=== PATIENT | female | born 1940 | race Caucasian/White ===

== ENCOUNTER 2024-10-16 11:49 | Emergency (ER) | payer OTHER ==
[~2024-10-16] VITALS: Ht 172.7 cm; Wt 88.0 kg
--- NOTE | 2024-10-16 12:03 | ERN ---
General Chief Complaint: Abdominal Pain Stated Complaint: SIDE PAIN Time Seen by MD: 11:52 Source: patient History of Present Illness Initial Comments In his is a an 84-year-old female coming in to be evaluated for pain. Patient states that she was diagnosed with colon cancer was just seen by her colorectal surgeon office. She states that as soon as she lives he started having more discomfort and was told to come to the ER. Patient states she does not want any labs or imaging studies and she is merely here for pain relief. Allergies: Coded Allergies: Sulfa (Sulfonamide Antibiotics) (Unverified Allergy, Unknown, 10/16/24) ROS Dictation CONSTITUTIONAL: No chills, no fever, no weakness, no diaphoresis, no malaise. HEAD/FACE: No signs of trauma. EENT: No eye pain, no blurred vision, no tearing, no double vision, no ear pain, no ear discharge, no nose pain, no nasal congestion, no throat pain, no throat swelling, no mouth pain. RESPIRATORY: No cough, no orthopnea, no SOB, no stridor, no wheezing. CARDIOVASCULAR: No chest pain, no edema, no palpitations, no syncope. GASTROINTESTINAL/ABDOMINAL: No abdominal pain, no constipation, no diarrhea, no nausea, no vomiting. GENITOURINARY: No abnormal discharge, no dysuria, no frequent urination, no hematuria. No complaints of pain in the genitals. MUSCULOSKELETAL: No back pain, no gout, no joint pain, no joint swelling, no muscle pain, no muscle stiffness, no neck pain. INTEGUMENTARY: No change in color, no change in hair/nails, no dryness, no lesion, no lumps, no rash. NEUROLOGICAL/PSYCH: No anxiety, not depressed, no emotional problem, no headache, no numbness, no pre-existing deficit, no history of seizures, no tremors, no weakness. HEMATOLOGIC/LYMPHATIC: Not anemic, no history of blood clots, no apparent bleeding, no bruising, glands not swollen. All Systems Negative, Except as Noted. Physical Exam Physical Exam Dictation VITAL SIGNS: Reviewed. GENERAL APPEARANCE: Alert, oriented x3, no acute distress, obese. HEAD AND FACE: Non-traumatic. EYES: PERRL, pink conjunctivas, eyelid no trauma, anterior chamber clear. EARS: Pinnas intact and no signs of trauma or erythema. Ear canals clear and no discharge. TMs no erythema. NOSE: No discharge, no bleeding. OROPHARYNX: Mouth normal, teeth no caries, tongue pink. Pharynx clear, no minh thema. Tonsils no exudates, no abscesses noted. Mucous membrane moist. NECK: Supple, non-tender, no thyromegaly, no masses, no JVD, no bruits. BREAST: Deferred. CHEST: No tenderness, no crepitus, no paradoxical movement, no retractions. LUNGS: Clear, well-ventilated, symmetric, no rales, no wheezing, no rhonchi, no stridor, good breath sounds bilaterally. HEART: Regular rate, regular rhythm, no murmur, no gallops. VASCULAR: No peripheral edema. ABDOMEN: Soft, positive bowel sounds, nondistended, no guarding, nontender, no rebound, no masses no hepatomegaly, no splenomegaly, no Fuller's sign, no hernias. RECTAL: Deferred. GENITAL: Deferred. NEUROLOGICAL: Normal speech, gross motor function intact, gross sensory function intact. MUSCULOSKELETAL: Neck nontender, full range of motion, back nontender, full range of motion. EXTREMITIES: Nontender, full range of motion. SKIN: Color pink, dry, no turgor, no rash, no lacerations, no abrasions, no contusions. LYMPHATICS: Deferred. Results Laboratory and Microbiology Labs Reviewed?: Yes MDM MDM: Differential diagnosis: Colon cancer, drug-seeking, 84-year-old female coming in to be evaluated for pain management. Patient states that she has been diagnosed with colon cancer in his here for pain control. She states that she has just left her colorectal surgeon but forgot to ask him for pain meds. Patient received 4 mg of morphine states he does not want any labs once again I did advise her she needed to follow up with her PCP for long-term management of pain. Also told her that pain would be better controlled with surgical removal of mass in the colon. ED Course Orders Procedure Category Date Status Time Morphine 4mg Syg PHA 10/16/24 Complete (Morphine 4mg Syg) 12:30 Current Medications Medications (Trade) Dose Ordered Sig/Reji Route PRN Reason Start Time Stop Time Status Last Admin Dose Admin Morphine Sulfate (morPHINE 4MG SYG) 4 mg ONCE ONCE IM 10/16/24 12:30 10/16/24 12:31 DC 10/16/24 12:14 Vital Signs Date Time Temp Pulse Resp B/P (MAP) Pulse Ox O2 Delivery O2 Flow Rate FiO2 10/16/24 12:00 97.5 89 16 137/68 97 Room Air DX & DISP Disposition: Discharge Departure Impression: Primary Impression: Drug-seeking behavior Additional Impression: History of colon cancer Condition: Stable Additional Instructions: FOLLOW-UP WITH PRIMARY CARE PROVIDER IN 1 TO 2 DAYS. TAKE MEDICATIONS D IRECTED HERE IN THE EMERGENCY ROOM. OKAY TO CONTINUE HOME MEDICATIONS UNLESS OTHERWISE DISCUSSED DURING YOUR VISIT IN THE EMERGENCY ROOM TODAY. RETURN TO YOUR NEAREST EMERGENCY ROOM IF SYMPTOMS WORSEN OR IF THERE IS NO IMPROVEMENT. CALL 911 IF YOU NEED IMMEDIATE ASSISTANCE. TAKE TYLENOL [id number] NEEDED AND IF NO CONTRAINDICATIONS ARE PRESENT. INCREASE ORAL HYDRATION. A WOUND CULTURE OR URINE CULTURE WAS ORDERED HERE IN THE EMERGENCY ROOM DEPARTMENT PLEASE FOLLOW-UP WITH PRIMARY CARE PROVIDER AND ADVISE THEM TO GET REPEAT PORTS FROM OUR FACILITY. IF YOU HAD ANY GEOVANNA WRAP/SPLINTS THAT WERE APPLIED HERE, PLEASE DO NOT REMOVE THEM UNTIL YOU SEE YOUR PRIMARY CARE OR SPECIALTY. Referrals: Referrals: JOAN KERNS MD, LUIS A MD Time of Disposition: 12:41 DARLENE YOON MD Oct 16, 2024 12:03
--- NOTE | 2024-10-16 12:06 | NUR ---
PT REFUSED LABS AND IMAGING, ER MD DR. YOON MADE AWARE.
[2024-10-16] MEDS: morPHINE 4 MG SYG IM ONE (12:14)
[2024-10-16 13:04] VITALS: BP 126/57; PULSE 76; RESP 18; TEMP 98.8; O2SAT 96
== END 2024-10-16 13:05 | disposition home or self-care (01) ==
LOC: EDH 11:49
DX: C18.9 Malignant neoplasm of colon, unspecified (principal); Z76.5 Malingerer [conscious simulation]; Z88.2 Allergy status to sulfonamides
CPT/HCPCS: 99283; 96372; J2270

== ENCOUNTER 2024-10-26 00:21 | Inpatient (IN) | payer OTHER ==
[2024-10-26] VITALS (11 sets, daily range): BP systolic 96–159; BP diastolic 54–75; PULSE 20–84; RESP 17–18; TEMP 98–99; O2SAT 96–97
[~2024-10-26] VITALS: Ht 172.7 cm; Wt 93.4 kg
[2024-10-26] MEDS ORDERED: acetaMINOPHEN 325 MG TAB PO PRN ×2 (03:00)
[2024-10-26] MEDS ORDERED: ondanSETRON 4MG INJ IV PRN (03:00)
--- NOTE | 2024-10-26 03:44 | HP ---
[facility] HISTORY AND PHYSICAL Date of Service: Oct 26, 2024 Time of Service: 02:50 PCP:Radha Parr HISTORY OF PRESENT ILLNESS: This is an 84 year old female with past medical history of hypertension,hyperlipidemia ,colon , rectal cancer rectal with recent robotic lysis of adhesion and colostomy creation performed on 10/[address]Haisar Sara Estrada who was transferred from [facility] ER for complaints of severe abdominal pain.Patient reports she was recently discharged from this facility on Tuesday and she has been having abdominal pain and was sent home without pain medication so while at home she was having persistent abdominal pain located around right lower quadrant.Patient reports the following day on she developed a fever of 101 and a home health nurse visited her and instructed her to go to ER,thus prompted this admission.Patient reports she has an up coming chemotherapy and a surgery . Seen and examined patient in room 428 awake,alert,coherent and appears comfortable.Patient denies nausea,vomiting,chest pain,palpitation ,cough and shortness of breath.Upon arrival from [facility] V/S T98.2,HR 63,RR17 BP 156/61 and Sat 97% RA. There is a CT scan of abdomen and pelvis without contrast done while in [facility] result revealed diverting colostomy is noted in the left lower quadrant to evidence of bowel obstruction. There is a small bubble of free air intraperitoneal which is presumably postoperative in nature. There is extensive subcutaneous emphysema there is thickening of the rectal wall which may represent a neoplasm. There is a small hiatal hernia the common bile duct is dilated at 2 cm.Will admit patient for further medical management. REVIEW OF SYSTEMS CONSTITUTIONAL: Complain of fever Denies chills, or night sweats. No unintentional weight loss reported. NEUROLOGICAL: Denies headache, amaurosis fugax, motor weakness, sensory deficit, vertigo/spinning sensation, gait abnormalities, or tremors. ENT: No hearing loss, otalgia, otorrhea, rhinitis, rhinorrhea, hoarseness, or sore throat. CARDIOVASCULAR: Denies any exertional angina, dyspnea on exertion, orthopnea, paroxysmal nocturnal dyspnea, palpitations, life-threatening arrhythmias, claudication. PULMONARY: Denies any shortness of breath, cough, phlegm/sputum, hemoptysis, pleuritic chest pain. SLEEP: Denies morning headaches, daytime somnolence or napping. Denies difficulty falling asleep, staying asleep, waking from sleep. Denies knowledge of snoring. GASTROINTESTINAL: Complained of right lower quadrant abdominal pain Denies any type of dysphagia to either liquids or solids. Denies nausea, vomiting, pyrosis, early satiety, diarrhea, constipation, or changes in stool consistency or caliber. Denies coffee-ground emesis, hematemesis, hematochezia, or melanotic stools. GENITOURINARY: Denies frequency, urgency, nocturia, hematuria or incontinence (Storage/Irritative symptoms.) Low urinary stream, straining to void, urinary intermittency or hesitancy, splitting of the voiding stream, terminal dribbling. ENDOCRINOLOGIC: Denies polyuria, polydipsia, polyphagia or heat/cold intolerances. HEMATOLOGIC: Denies thrombophilia/previous clots, or coagulopathy/bleeding disorders. ONCOLOGIC: Denies personal history of malignancy. DERMATOLOGIC: Denies rashes or pruritus. PSYCHIATRIC: Denies any suicidal or homicidal ideation. Denies hallucinations. PAST MEDICAL HISTORY: [Information obtained from patient :COLON and RECTAL Cancer , HYPERTENSION AND HYPERLIPIDEMIA ] PAST SURGICAL HISTORY: [ROBOTIC LYSIS OF ADDITION AND ROBOTIC LOOP COLOSTOMY CREATION 10/22/2024 ] PAST SOCIAL HISTORY: [ Patient lives alone .Patient denies alcohol,cigarette and recreational drug use ] FAMILY HISTORY: [ Noncontributory ] Coded Allergies: Sulfa (Sulfonamide Antibiotics) (Unverified Allergy, Unknown, 10/16/24) PHYSICAL EXAM GENERAL APPEARANCE: The patient is awake, alert, and oriented, in no acute cardiopulmonary distress. NEUROLOGICAL: Cranial nerves II-XII grossly intact. Motor is 5/5 in bilateral upper and lower extremities proximal to distal. No sensory deficits. HEENT: Face is symmetric. Pupils are equal and reactive. Extraocular movements are intact. NECK: Supple. No JVD. No thyromegaly. No submental, submandibular, pre- /postauricular, occipital or supraclavicular lymphadenopathy. CHEST: Normal chest expansion. No Telemetry. LUNGS: Absence of any rales, rhonchi or any wheezing. CARDIOVASCULAR: Regular. S1 and S2 normal. No appreciable rubs, murmurs or gallops. ABDOMEN: Diffuse abdominal tenderness on palpation. Positive colostomy Soft and nondistended. There is no rebound, voluntary guarding, or rigidity. : Deferred. No Martinez. EXTREMITIES: Non-edematous and not cyanotic. No clubbing. Good capillary refill. SKIN: No skin breakdown. LABS: DIAGNOSTICS / RADIOLOGY: [ ] ASSESSMENT: Intractable abdominal pain POA Postoperative complication POA Postoperative fever POA Rectal cancer POA Recent post colostomy placement POA Hypertension POA PLAN: We will admit patient in medical telemetry We will keep patient nothing by mouth We will start NS @ 100 ml / hr and re evaluate We will start Levaquin 750 mg IV daily We will start on Famotidine 20 mg IV bid for GI prophylaxis We will replace electrolytes as needed per protocol We will add prn medication for fever,pain,cough , nausea and vomiting We will reconcile home meds once medlist available We will seek general surgery consultation We will obtain urinalysis and blood culture We will request labs in am Further orders to follow depending on above results Case discussed with attending physician and came up with above treatment and plan of care. ADVANCED CARE PLANNING 1. Which of the following were discussed? Hospice Care - No Therapeutic options - Yes Advance Directives - No Other discussions - 2. Discussed with who? Patient 3. Voluntary nature of this service was explained to the patient? Yes 4. Amount of time spent - _20 5. Reviewed by Physician? (if this service was performed by NPP) Yes Patient seen and examined by me. Agree with note by ADHESIVE BONDING MACHINE OPERATOR SEE ADDITIONAL ORDERS PER CHART DISCUSSED WITH NURSING STAFF CONNIE LAL Oct 26, 2024 03:44
[2024-10-26 04:03] LABS: BASOPHILS # (AUTO) 0.01 K/uL (0.00-0.20); BASOPHILS % (AUTO) 0.1 % (0.0-5.0); HEMATOCRIT 39.8 % (36-48); IMMATURE GRANULOCYTE ABSOLUTE 0.05 K/uL (0-1); LYMPHOCYTES # (AUTO) 1.6 K/uL (1.0-4.8); LYMPHOCYTES % (AUTO) 16.6 % (21.0-51.0); MEAN CORPUSCULAR HGB CONC 33.4 g/dL (32.0-36.0); MEAN CORPUSCULAR VOLUME 89.6 fL (79-99); MONOCYTES # (AUTO) 1.1 K/uL (0.1-1.0); MONOCYTES % (AUTO) 10.9 % (3.0-13.0); NEUTROPHILS % (AUTO) 70.9 % (40.0-77.0); PLATELET COUNT (AUTO) 248 K/uL (130-400); RED BLOOD CELL COUNT(AUTO) 4.44 MIL/uL (4.00-5.50); RED CELL DISTRIBUTION WIDTH 14.7 % (11.0-15.5); WHITE BLOOD COUNT (AUTO) 9.8 K/uL (4.8-10.8)
[2024-10-26 04:11] LABS: INR 1.03 (0.85-1.15); PROTHROMBIN TIME 10.9 SEC (9.6-11.6)
[2024-10-26 04:13] LABS: PARTIAL THROMBOPLASTIN TIME 24.3 SEC (26.3-35.5)
[2024-10-26 04:16] LABS: BILIRUBIN,TOTAL 0.6 mg/dL (0.2-1.0); CREATININE 0.8 mg/dL (0.5-1.0); MAGNESIUM 1.7 mg/dL (1.80-2.40); TOTAL PROTEIN, SERUM 5.8 g/dL (6.0-8.3)
[2024-10-26 04:25] LABS: POTASSIUM 2.7 mmol/L (3.5-5.1)
[2024-10-26] MEDS: levoFLOXacin 750 MG/D5W 150ML BAG IV SCH (04:46)
[2024-10-26] MEDS: 0.9%NACL 1000ML 1,000 ML IV SCH (04:47)
[2024-10-26] MEDS: ketOROlac 15MG/ML VIAL (15MG/ML) IV PRN (04:48)
[2024-10-26 05:15] LABS: ERYTHROCYTE SEDIMENTATION RATE 5 MM/HR (0-30)
[2024-10-26] MEDS: PoTASSium chloRIDE 20MEQ/100ML 100 ML IV PRN (06:34)
--- NOTE | 2024-10-26 09:25 | CONS ---
COLORECTAL CONSULTATION NOTE Date of Consultation: Oct 26, 2024 Time of Consultation: 09:25 History of Present Illness: This is an 84yo female with past medical history of obstructing rectal mass. She underwent loop colostomy 10/22/24. She was sent home in stable condition; however, presented back due to fevers and abdominal pain. Imaging at [facility] without obstruction. Abdomen is soft, nondistended. She has not had any output in ostomy. No nausea or vomiting. Review of Systems: CONSTITUTIONAL: No malaise or change in sensation of wellbeing. ENMT: No rhinorrhea, otorrhea, sinus pain, ear ache. CARDIOVASCULAR: No angina, palpitations, orthopnea or paroxysmal dyspnea. RESPIRATORY: No SOB. GASTROINTESTINAL: No abdominal pain, nausea, vomiting, diarrhea, hematemesis, melena or change in the patient's habitual bowel movements consistency/number. GENITOURINARY: No dysuria, hematuria or change in bladder continence. MUSCULOSKELETAL: No new muscle pain or decrease in muscular strength. No new joint swelling, redness or tenderness. SKIN: No new rash. Past Medical History: [ ] Past Surgical History: [ ] Past Social History: [ ] Family History: [ ] Coded Allergies: Sulfa (Sulfonamide Antibiotics) (Unverified Allergy, Unknown, 10/16/24) Physical Exam: GEN: Awake, alert, oriented in person, time and place, and in no acute distress. HEENT: No sinus tenderness. Tympanic membranes were not examined. No rhinorrhea. Oral pharyngeal mucosa is pink, moist and within normal limits. Neck is supple with no cervical lymphadenopathy, thyromegaly or JVD. CHEST: Inspection, palpation and percussion of the chest were unremarkable. Lung auscultation revealed normal breath sounds bilaterally. CARDIAC: PMI is within normal limits. Heart sounds are regular. Normal S1, S2. No gallop or murmur. ABD: Soft, non-tender and not distended. No peritoneal signs on palpation. No organomegaly. Normal bowel sounds. EXT: No cyanosis or clubbing. No edema. SKIN: Intact. No rashes. JOINTS: No evidence of synovitis or acute arthritis. NEURO: Alert and oriented to name, place and person. Cranial nerve examination is unremarkable. No focal motor deficits. Normal speech. Gait is normal. Strength is normal. Vital Sign (Last 24 Hours) 10/26/24 10/26/24 05:42 08:00 Temp 98.1 Pulse 72 Resp 18 B/P (MAP) 126/58 Pulse Ox 96 O2 Delivery Room Air O2 Flow Rate 0 FiO2 21 Intake & Output (last 24hrs) 10/25/24 10/25/24 10/26/24 15:00 23:00 07:00 Output Total 220 ml Balance -220 ml Laboratory: [ ] Laboratory: Test 10/26/24 03:46 Range/Units White Blood Count 9.8 4.8-10.8 K/uL Red Blood Count 4.44 4.00-5.50 MIL/uL Hemoglobin 13.3 12.0-16.0 g/dL Hematocrit 39.8 36-48 % Mean Corpuscular Volume 89.6 79-99 fL Mean Corpuscular Hemoglobin 30.0 27.0-33.0 pg Mean Corpuscular Hemoglobin Concent 33.4 32.0-36.0 g/dL Red Cell Distribution Width 14.7 11.0-15.5 % Platelet Count 248 130-400 K/uL Mean Platelet Volume 10.8 H 7.5-10.5 fL Immature Granulocyte % (Auto) 0.5 0-1 % Neutrophils (%) (Auto) 70.9 40.0-77.0 % Lymphocytes (%) (Auto) 16.6 L 21.0-51.0 % Monocytes (%) (Auto) 10.9 3.0-13.0 % Eosinophils (%) (Auto) 1.0 0.0-8.0 % Basophils (%) (Auto) 0.1 0.0-5.0 % Neutrophils # (Auto) 7.0 1.8-7.7 K/uL Lymphocytes # (Auto) 1.6 1.0-4.8 K/uL Monocytes # (Auto) 1.1 H 0.1-1.0 K/uL Eosinophils # (Auto) 0.10 0.00-0.70 K/uL Basophils # (Auto) 0.01 0.00-0.20 K/uL Absolute Immature Granulocyte (auto 0.05 0-1 K/uL Nucleated Red Blood Cells 0.0 0.0-0.19 % Erythrocyte Sedimentation Rate 5 0-30 MM/HR Prothrombin Time 10.9 9.6-11.6 SEC Prothromb Time International Ratio 1.03 0.85-1.15 Activated Partial Thromboplast Time 24.3 L 26.3-35.5 SEC Sodium Level 142 136-145 mmol/L Potassium Level 2.7 *L 3.5-5.1 mmol/L Chloride Level 105 101-111 mmol/L Carbon Dioxide Level 30 21-32 mmol/L Blood Urea Nitrogen 14 7-18 mg/dL Creatinine 0.8 0.5-1.0 mg/dL Glomerular Filtration Rate Calc 73 >90 mL/min Random Glucose 85 70-105 mg/dL Lactic Acid Level 1.5 0.8-2.5 mmol/L Total Calcium 8.7 8.5-10.1 mg/dL Magnesium Level 1.70 L 1.80-2.40 mg/dL Total Bilirubin 0.6 0.2-1.0 mg/dL Aspartate Amino Transf (AST/SGOT) 26 10-37 U/L Alanine Aminotransferase (ALT/SGPT) 20 12-78 U/L Alkaline Phosphatase 86 50-136 U/L C-Reactive Protein, Quantitative 15.20 H 0.5-3.0 mg/L Total Protein 5.8 L 6.0-8.3 g/dL Albumin 3.0 L 3.5-5.0 g/dL Procalcitonin < 0.05 L 0.05-0.5 ng/mL Current Medications Medications (Trade) Dose Ordered Sig/Reji Route PRN Reason Start Time Stop Time Status Last Admin Dose Admin Acetaminophen (TYLenol 325MG TAB) 650 mg Q4H PRN PO MILD PAIN (1-3) 10/26/24 03:00 11/25/24 02:59 Acetaminophen (TYLenol 325MG TAB) 650 mg Q6H PRN PO TEMPERATURE GREATER THAN 101.5 10/26/24 03:00 11/25/24 02:59 Famotidine (Pepcid 20mg Vial) 20 mg BID IV 10/26/24 09:00 11/25/24 08:59 Ketorolac Tromethamine (toRADol) 15 mg Q6H PRN IV MODERATE PAIN (4-6) 10/26/24 03:00 10/31/24 02:59 10/26/24 04:48 15 MG Levofloxacin/ Dextrose (LEvaquIN 750 MG/ D5W 150 ML) 750 mg Q24H IV 10/26/24 03:00 11/05/24 02:59 10/26/24 04:46 750 MG Magnesium Sulfate 50 ml @ 0 mls/hr PROTOCOL PRN IV OTHER [SEE ORDER COMMENTS] 10/26/24 03:30 11/25/24 03:29 Ondansetron HCl (zoFRAN 4MG INJ) 4 mg Q6H PRN IV NAUSEA/VOMITING 10/26/24 03:00 11/25/24 02:59 Potassium Chloride 100 ml @ 50 mls/hr AD PRN IV POTASSIUM PROTOCOL 10/26/24 03:30 11/25/24 03:29 10/26/24 06:34 50 MLS/HR Sodium Chloride 1,000 ml @ 100 mls/hr Q10H IV 10/26/24 03:00 11/25/24 02:59 10/26/24 04:47 100 MLS/HR Diagnostics / Radiology: [COPY/PASTE HERE IF NO REPORTS PLEASE DELETE SECTION] Assessment: Loop colostomy Plan: Obtain CT with oral gastrograffin continue PO diet. [facility] Oct 26, 2024 09:25
[2024-10-26] MEDS ORDERED: metoPROLOL tartRATE 1 MG/ML 5ML VIAL IV PRN (09:30)
[2024-10-26] MEDS: FAMOTIDINE 20MG VIAL IV SCH (09:33)
[2024-10-26] MEDS ORDERED: DIATR MEGLU/DIATRIZOATE SODIUM 30 ML BOTTLE ONE (14:54)
[2024-10-26] MEDS ORDERED: PoTASSium chloRIDE 20MEQ/100ML 100 ML IV PRN (15:00)
[2024-10-26] MEDS ORDERED: LATA2.5D14 OU (15:09)
[2024-10-26] MEDS ORDERED: LOSA100T59 PO (15:09)
[2024-10-26] MEDS ORDERED: ASPI-1005 PO (15:09)
[2024-10-26] MEDS ORDERED: OMEP20CA12 PO (15:09)
[2024-10-26] MEDS ORDERED: CARV25TA PO (15:09)
[2024-10-26] MEDS ORDERED: AMLO-257 PO (15:09)
[2024-10-26] MEDS: PoTASSium chloRIDE 20MEQ ER 20 MEQ ERTAB PO PRN (15:18)
[2024-10-26] MEDS: MAGNESIUM HYDROXIDE 30 ML/UDCUP PO ONE (15:18)
[2024-10-26] MEDS: MAGNESIUM 2GM PREMIX 50ML 50 ML IV PRN (15:24)
[2024-10-26] MEDS: metoCLOPRAmide 10 MG/2 ML VIAL IVP ONE (15:36)
--- NOTE | 2024-10-26 17:07 | NUR ---
DCP Patient states lives with Delvin Krishnamurthy, Kevin [phone] in a house with two step entrance and a tub. States she is retired, remains independent and drives self. has needed some help with ADL's since last discharge (10/17/2024). Denies medical devices. Denies home health services, home care provider or dialysis. PCP - Radha Dunn TRANSFORMATION ANALYST [facility]. Upon discharge, Kevin Forrester [phone] and assist with care, as needed. Addendum: 10/26/24 at 1713 by ANNABEL LYNN RN Amended: Links added.
[2024-10-26] MEDS ORDERED: IOHEXOL-350 75 ML VIAL IV ONE (17:25)
[2024-10-26 21:14] LABS: MAGNESIUM 2.1 mg/dL (1.80-2.40)
[2024-10-26 21:18] LABS: INR 1.08 (0.85-1.15); PROTHROMBIN TIME 11.4 SEC (9.6-11.6)
[2024-10-26 21:20] LABS: PARTIAL THROMBOPLASTIN TIME 23.8 SEC (26.3-35.5)
[2024-10-26 21:24] LABS: POTASSIUM 2.7 mmol/L (3.5-5.1)
[2024-10-26] MEDS: PoTASSium chl 10% ELIXIR 20MEQ 20 MEQ/15 ML UDCUP PO PRN (21:53)
[2024-10-27] VITALS (7 sets, daily range): BP systolic 153–178; BP diastolic 67–82; PULSE 73–86; RESP 17–18; TEMP 97–98.5; O2SAT 96–98
[2024-10-27 06:02] LABS: BASOPHILS # (AUTO) 0.01 K/uL (0.00-0.20); BASOPHILS % (AUTO) 0.1 % (0.0-5.0); EOSINOPHILS # (AUTO) 0.18 K/uL (0.00-0.70); EOSINOPHILS % (AUTO) 2.2 % (0.0-8.0); HEMATOCRIT 35.5 % (36-48); IMMATURE GRANULOCYTE ABSOLUTE 0.04 K/uL (0-1); LYMPHOCYTES % (AUTO) 11.8 % (21.0-51.0); MEAN CORPUSCULAR HEMOGLOBIN 29.9 pg (27.0-33.0); MEAN CORPUSCULAR HGB CONC 33.8 g/dL (32.0-36.0); MEAN CORPUSCULAR VOLUME 88.5 fL (79-99); MONOCYTES # (AUTO) 0.9 K/uL (0.1-1.0); MONOCYTES % (AUTO) 11.2 % (3.0-13.0); NEUTROPHILS # (AUTO) 6.2 K/uL (1.8-7.7); NEUTROPHILS % (AUTO) 74.2 % (40.0-77.0); PLATELET COUNT (AUTO) 226 K/uL (130-400); RED BLOOD CELL COUNT(AUTO) 4.01 MIL/uL (4.00-5.50); RED CELL DISTRIBUTION WIDTH 14.8 % (11.0-15.5); WHITE BLOOD COUNT (AUTO) 8.3 K/uL (4.8-10.8)
[2024-10-27 06:15] LABS: ALBUMIN 2.6 g/dL (3.5-5.0); BILIRUBIN,TOTAL 0.5 mg/dL (0.2-1.0); CREATININE 0.9 mg/dL (0.5-1.0); POTASSIUM 3.3 mmol/L (3.5-5.1); TOTAL PROTEIN, SERUM 5.5 g/dL (6.0-8.3)
--- NOTE | 2024-10-27 08:34 | HMCIMG ---
Exam Type: CT ABDOMEN/PELVIS W/WO CONTRAS Clinical Information: post op loop colostomy, abd pain Comparison: None Contrast: 100 cc's Isovue 370 IV, no complications or adverse reactions CT Dose Index (CTDI): 31.60 mGy Dose Length Product (DLP): 1740.80 total mGy-cm Findings: No evidence of nephro or ureterolithiasis is found. No hydronephrosis or ureteral dilatation is seen. The lung bases are clear. The stomach is unremarkable except for moderate sized hiatal hernia.. It shows no wall thickening. No gross ulceration is seen. It is not overly distended. There are no surrounding inflammatory changes. No wall lesions are identified to suggest cancer. The spleen is unremarkable. It is not enlarged. The pancreas shows normal anatomy. It is not fatty replaced. It shows no lesions. The pancreatic duct is not dilated. The gallbladder is unremarkable. It shows no cholelithiasis. The gallbladder wall is normal in thickness. There is no pericholecystic fluid. The is no acute or chronic inflammation noted. The adrenal glands are unremarkable. There is no enlargement. No lesions are noted. The liver is unremarkable. It shows no focal masses. The appendix is unremarkable. It shows no evidence of inflammation. No appendicolith is seen. The small bowel is unremarkable. There is no evidence of dilatation to suggest obstruction. No evidence of adynamic ileus is seen. There is no small bowel wall thickening to suggest enteritis. Recent left-sided colostomy seen and there is air within the abdominal wall. This is explained by recent postoperative changes but follow-up is necessary to confirm resolution and exclude underlying soft tissue infection. The urinary bladder is distended. The other pelvic structures are unremarkable. The bony and vascular structures are unremarkable for the patient's age. IMPRESSION: Recent left-sided colostomy seen and there is air within the abdominal wall. This is explained by recent postoperative changes but follow-up is necessary to confirm resolution and exclude underlying soft tissue infection. Distended urinary bladder. This study was performed using dose reduction techniques to include automated exposure control and/or adjustment of the mA and/or kV according to patient size.
--- NOTE | 2024-10-27 08:43 | PN ---
[facility] PROGRESS NOTE Date of Service: Oct 27, 2024 Time of Service: 08:43 SUBJECTIVE: [ ] 84-year-old female with past medical history of essential hypertension, hyperlipidemia, colorectal cancer with recent robotic lysis of adhesions and colostomy creation performed on 10/22/[address] Dipak Estrada transferred from [facility] ER in [place] with chief complaint of severe abdominal pain. Patient admitted with diagnosis of intractable abdominal pain secondary to suspected soft tissue infection and recent left-sided colostomy placement. Dr. Dipak Estrada consulted. 10/27/2024 this morning patient was found awake alert oriented x3. she is comp laining of pain to colostomy area. Dr. Patel also at bedside during assessment. There is no abdominal distention, colostomy bag in place. Primary nurse reports output this morning was [address] results with surgery team. Reports soft tissue infection is unlikely. Incidental finding of distended urinary bladder. Bladder scan showed2 L, patient reports history of this and reports could be positional. Patient had 500 mL of output after changing positions. Repeat bladder scan showing approximately 1500 mL of residual. Recommending Martinez catheter. Patient reports we will continue to try review hours and if still not successful okay for Martinez catheter insertion. Surgery team recommended patient continue being monitored, continue IV antibiotics. If remained stable may be discharged tomorrow from surgery standpoint. Discussed these recommendations with primary nurse. REVIEW OF SYSTEMS CONSTITUTIONAL: Complain of fever Denies chills, or night sweats. No unintentional weight loss reported. NEUROLOGICAL: Denies headache, amaurosis fugax, motor weakness, sensory deficit, vertigo/spinning sensation, gait abnormalities, or tremors. ENT: No hearing loss, otalgia, otorrhea, rhinitis, rhinorrhea, hoarseness, or sore throat. CARDIOVASCULAR: Denies any exertional angina, dyspnea on exertion, orthopnea, paroxysmal nocturnal dyspnea, palpitations, life-threatening arrhythmias, claudication. PULMONARY: Denies any shortness of breath, cough, phlegm/sputum, hemoptysis, pleuritic chest pain. SLEEP: Denies morning headaches, daytime somnolence or napping. Denies difficulty falling asleep, staying asleep, waking from sleep. Denies knowledge of snoring. GASTROINTESTINAL: Complained of right lower quadrant abdominal pain Denies any type of dysphagia to either liquids or solids. Denies nausea, vomiting, pyrosis, early satiety, diarrhea, constipation, or changes in stool consistency or caliber. Denies coffee-ground emesis, hematemesis, hematochezia, or melanotic stools. GENITOURINARY: Denies frequency, urgency, nocturia, hematuria or incontinence (Storage/Irritative symptoms.) Low urinary stream, straining to void, urinary intermittency or hesitancy, splitting of the voiding stream, terminal dribbling. ENDOCRINOLOGIC: Denies polyuria, polydipsia, polyphagia or heat/cold intolerances. HEMATOLOGIC: Denies thrombophilia/previous clots, or coagulopathy/bleeding diso rders. ONCOLOGIC: Denies personal history of malignancy. DERMATOLOGIC: Denies rashes or pruritus. PSYCHIATRIC: Denies any suicidal or homicidal ideation. Denies hallucinations. PHYSICAL EXAM GENERAL APPEARANCE: The patient is awake, alert, and oriented, in no acute cardiopulmonary distress. NEUROLOGICAL: Cranial nerves II-XII grossly intact. Motor is 5/5 in bilateral upper and lower extremities proximal to distal. No sensory deficits. HEENT: Face is symmetric. Pupils are equal and reactive. Extraocular movements are intact. NECK: Supple. No JVD. No thyromegaly. No submental, submandibular, pre- /postauricular, occipital or supraclavicular lymphadenopathy. CHEST: Normal chest expansion. No Telemetry. LUNGS: Absence of any rales, rhonchi or any wheezing. CARDIOVASCULAR: Regular. S1 and S2 normal. No appreciable rubs, murmurs or gallops. ABDOMEN: Diffuse abdominal tenderness on palpation. Positive colostomy Soft and nondistended. There is no rebound, voluntary guarding, or rigidity. : Deferred. No Martinez. EXTREMITIES: Non-edematous and not cyanotic. No clubbing. Good capillary refill. SKIN: No skin breakdown. Vital Signs (last 8hr) Date Time Temp Pulse Resp B/P (MAP) Pulse Ox O2 Delivery O2 Flow Rate FiO2 10/27/24 08:00 97.0 86 18 166/82 97 Room Air 10/27/24 05:39 79 157/69 10/27/24 04:00 98.4 77 17 178/69 94 Room Air LABS: Laboratory: Test 10/27/24 05:42 10/26/24 20:50 10/26/24 03:46 Range/Units White Blood Count 8.3 4.8-10.8 K/uL Red Blood Count 4.01 4.00-5.50 MIL/uL Hemoglobin 12.0 12.0-16.0 g/dL Hematocrit 35.5 L 36-48 % Mean Corpuscular Volume 88.5 79-99 fL Mean Corpuscular Hemoglobin 29.9 27.0-33.0 pg Mean Corpuscular Hemoglobin Concent 33.8 32.0-36.0 g/dL Red Cell Distribution Width 14.8 11.0-15.5 % Platelet Count 226 130-400 K/uL Mean Platelet Volume 10.7 H 7.5-10.5 fL Immature Granulocyte % (Auto) 0.5 0-1 % Neutrophils (%) (Auto) 74.2 40.0-77.0 % Lymphocytes (%) (Auto) 11.8 L 21.0-51.0 % Monocytes (%) (Auto) 11.2 3.0-13.0 % Eosinophils (%) (Auto) 2.2 0.0-8.0 % Basophils (%) (Auto) 0.1 0.0-5.0 % Neutrophils # (Auto) 6.2 1.8-7.7 K/uL Lymphocytes # (Auto) 1.0 1.0-4.8 K/uL Monocytes # (Auto) 0.9 0.1-1.0 K/uL Eosinophils # (Auto) 0.18 0.00-0.70 K/uL Basophils # (Auto) 0.01 0.00-0.20 K/uL Absolute Immature Granulocyte (auto 0.04 0-1 K/uL Nucleated Red Blood Cells 0.0 0.0-0.19 % Sodium Level 140 136-145 mmol/L Potassium Level 3.3 L 3.5-5.1 mmol/L Chloride Level 107 101-111 mmol/L Carbon Dioxide Level 26 21-32 mmol/L Blood Urea Nitrogen 10 7-18 mg/dL Creatinine 0.9 0.5-1.0 mg/dL Glomerular Filtration Rate Calc 63 >90 mL/min Random Glucose 102 70-105 mg/dL Total Calcium 8.3 L 8.5-10.1 mg/dL Total Bilirubin 0.5 0.2-1.0 mg/dL Aspartate Amino Transf (AST/SGOT) 23 10-37 U/L Alanine Aminotransferase (ALT/SGPT) 18 12-78 U/L Alkaline Phosphatase 76 50-136 U/L Total Protein 5.5 L 6.0-8.3 g/dL Albumin 2.6 L 3.5-5.0 g/dL Prothrombin Time 11.4 9.6-11.6 SEC Prothromb Time International Ratio 1.08 0.85-1.15 Activated Partial Thromboplast Time 23.8 L 26.3-35.5 SEC Magnesium Level 2.10 1.80-2.40 mg/dL Erythrocyte Sedimentation Rate 5 0-30 MM/HR Lactic Acid Level 1.5 0.8-2.5 mmol/L C-Reactive Protein, Quantitative 15.20 H 0.5-3.0 mg/L Procalcitonin < 0.05 L 0.05-0.5 ng/mL Current Medications Medications (Trade) Dose Ordered Sig/Reji Route PRN Reason Start Time Stop Time Status Last Admin Dose Admin Acetaminophen (TYLenol 325MG TAB) 650 mg Q4H PRN PO MILD PAIN (1-3) 10/26/24 03:00 11/25/24 02:59 Acetaminophen (TYLenol 325MG TAB) 650 mg Q6H PRN PO TEMPERATURE GREATER THAN 101.5 10/26/24 03:00 11/25/24 02:59 Famotidine (Pepcid 20mg Vial) 20 mg BID IV 10/26/24 09:00 11/25/24 08:59 10/26/24 09:33 20 MG Ketorolac Tromethamine (toRADol) 15 mg Q6H PRN IV MODERATE PAIN (4-6) 10/26/24 03:00 10/31/24 02:59 10/27/24 04:35 15 MG Levofloxacin/ Dextrose (LEvaquIN 750 MG/ D5W 150 ML) 750 mg Q24H IV 10/26/24 03:00 11/05/24 02:59 10/27/24 03:29 750 MG Magnesium Sulfate 50 ml @ 0 mls/hr PROTOCOL PRN IV OTHER [SEE ORDER COMMENTS] 10/26/24 03:30 11/25/24 03:29 10/26/24 15:24 25 MLS/HR Metoprolol Tartrate (loprESSOR) 5 mg Q6H PRN IV ADMINISTER FOR SBP > 160 10/26/24 09:30 11/25/24 09:29 Ondansetron HCl (zoFRAN 4MG INJ) 4 mg Q6H PRN IV NAUSEA/VOMITING 10/26/24 03:00 11/25/24 02:59 Potassium Chloride 100 ml @ 50 mls/hr AD PRN IV POTASSIUM PROTOCOL 10/26/24 03:30 11/25/24 03:29 10/27/24 06:44 50 MLS/HR Potassium Chloride 100 ml @ 100 mls/hr AD PRN IV POTASSIUM PROTOCOL 10/26/24 15:00 11/25/24 14:59 Potassium Chloride (K-Dur/Klor-Con 20meq) 20 meq AD PRN PO POTASSIUM PROTOCOL 10/26/24 15:00 11/25/24 14:59 10/26/24 20:33 20 MEQ Potassium Chloride (KCl 10% Elixir 20meq/15ml) 20 meq AD PRN PO POTASSIUM PROTOCOL 10/26/24 15:00 11/25/24 14:59 10/27/24 00:57 20 MEQ Sodium Chloride 1,000 ml @ 100 mls/hr Q10H IV 10/26/24 03:00 11/25/24 02:59 10/26/24 15:18 100 MLS/HR DIAGNOSTICS / RADIOLOGY: [ ] ASSESSMENT: Intractable abdominal pain POA Postoperative complication POA Postoperative fever POA Rectal cancer POA Recent post colostomy placement POA Hypertension POA PLAN: Continue admission in the medical telemetry unit Continue regular diet Stop IV fluids Continue Levaquin 750 mg IV daily Pending urinalysis Blood cultures negative so far x1 day Monitoring replace electrolytes Follow surgery's recommendations on colostomy care Monitor output Bladder scan Insert Martinez catheterization if repeat bladder scan showing retention Home meds reviewed and reconciled We are still pending a urinalysis Monitor a.m. labs PRN Treatment - Add when necessary meds for nausea, vomiting, pain, constipa tion, insomnia. DVT/GI prophylaxis- Continue SCDs and Protonix at current doses. Full CODE STATUS This document was generated in part using voice recognition software, occasional wrong word or sound alike substitutions may have occurred due to the inherent limitations of voice recognition software. Read the chart carefully and recognize using context, where the substitutions have occurred. Although every effort was made to edit the content, time buyer and typing errors may occur CHRISTINE RYDER [facility] Oct 27, 2024 08:43
[2024-10-27] MEDS ORDERED: acetaMINOPHEN 500 MG TABLET PO PRN (09:00)
[2024-10-27] MEDS: PANTOPrazole 40 MG/VIAL IVP SCH (09:22)
[2024-10-27] MEDS: morPHINE 2 MG SYG IVP ONE (09:23)
[2024-10-27] MEDS: LoSARTan 100 MG TABLET PO SCH (09:23)
[2024-10-27] MEDS: carVEDIlol 25 MG TABLET PO SCH (09:23)
[2024-10-27] MEDS ORDERED: FAMOTIDINE 20MG VIAL IV PRN (10:30)
--- NOTE | 2024-10-27 10:34 | CONS ---
[facility] CONSULTATION NOTE Date of Consultation: Oct 27, 2024 Time of Consultation: 10:22 History of Present Illness: [ The patient is a pleasant 84 yo F s/p robotic assisted loop colostomy done by Dr. Yaov Quesada MD. The patient is POD 5 from date of surgery and was admitted due to concerns of a post-op fever. The patient since has been under hospitalist care and is clinically stable. The patient underwent a CT scan with oral contrast and appears to be unremarkable. The patients pain is well managed and reports having BMs this morning with findings of blood tinged mucous per rectum and bilious, green/yellow watery output from stoma. The patient voices concerns over stoma and her ability/confidence to maintain bag and such..patient reassured. Overall vital signs are stable, patient is clinically stable. ] Review of Systems: CONSTITUTIONAL: No malaise or change in sensation of wellbeing. ENMT: No rhinorrhea, otorrhea, sinus pain, ear ache. CARDIOVASCULAR: No angina, palpitations, orthopnea or paroxysmal dyspnea. RESPIRATORY: No SOB. GASTROINTESTINAL: No abdominal pain, nausea, vomiting, diarrhea, hematemesis, melena. Reports watery stools this am. GENITOURINARY: No dysuria, hematuria or change in bladder continence. MUSCULOSKELETAL: No new muscle pain or decrease in muscular strength. No new joint swelling, redness or tenderness. SKIN: No new rash. Past Medical History: [Colorectal CA ] Past Surgical History: [ s/p Loop colostomy 10/22/24] Past Social History: [ ] Family History: [ ] Coded Allergies: Sulfa (Sulfonamide Antibiotics) (Unverified Allergy, Unknown, 10/16/24) Physical Exam: GEN: Awake, alert, oriented in person, time and place, and in no acute distress. HEENT: No sinus tenderness. Tympanic membranes were not examined. No rhinorrhea. Oral pharyngeal mucosa is pink, moist and within normal limits. Neck is supple with no cervical lymphadenopathy, thyromegaly or JVD. CHEST: Inspection, palpation and percussion of the chest were unremarkable. Lung auscultation revealed normal breath sounds bilaterally. CARDIAC: PMI is within normal limits. Heart sounds are regular. Normal S1, S2. No gallop or murmur. ABD: Soft, non-tender and not distended. No peritoneal signs on palpation. No organomegaly. Normal bowel sounds. Ostomy bag in place. incisions clean/dry and well approximated. EXT: No cyanosis or clubbing. No edema. SKIN: Intact. No rashes. JOINTS: No evidence of synovitis or acute arthritis. NEURO: Alert and oriented to name, place and person. Cranial nerve examination is unremarkable. No focal motor deficits. Normal speech. Gait is normal. Strength is normal. Vital Sign (Last 24 Hours) 10/26/24 10/27/24 10/27/24 19:20 08:00 09:23 Temp 97.0 Pulse 86 Resp 18 B/P (MAP) 166/82 Pulse Ox 97 O2 Delivery Room Air O2 Flow Rate 0 FiO2 21 Intake & Output (last 24hrs) 10/26/24 10/26/24 10/27/24 15:00 23:00 07:00 Intake Total 240 ml Output Total 600 ml 600 ml Balance -600 ml -360 ml Laboratory: [ ] Laboratory: Test 10/27/24 05:42 10/26/24 20:50 10/26/24 03:46 Range/Units White Blood Count 8.3 4.8-10.8 K/uL Red Blood Count 4.01 4.00-5.50 MIL/uL Hemoglobin 12.0 12.0-16.0 g/dL Hematocrit 35.5 L 36-48 % Mean Corpuscular Volume 88.5 79-99 fL Mean Corpuscular Hemoglobin 29.9 27.0-33.0 pg Mean Corpuscular Hemoglobin Concent 33.8 32.0-36.0 g/dL Red Cell Distribution Width 14.8 11.0-15.5 % Platelet Count 226 130-400 K/uL Mean Platelet Volume 10.7 H 7.5-10.5 fL Immature Granulocyte % (Auto) 0.5 0-1 % Neutrophils (%) (Auto) 74.2 40.0-77.0 % Lymphocytes (%) (Auto) 11.8 L 21.0-51.0 % Monocytes (%) (Auto) 11.2 3.0-13.0 % Eosinophils (%) (Auto) 2.2 0.0-8.0 % Basophils (%) (Auto) 0.1 0.0-5.0 % Neutrophils # (Auto) 6.2 1.8-7.7 K/uL Lymphocytes # (Auto) 1.0 1.0-4.8 K/uL Monocytes # (Auto) 0.9 0.1-1.0 K/uL Eosinophils # (Auto) 0.18 0.00-0.70 K/uL Basophils # (Auto) 0.01 0.00-0.20 K/uL Absolute Immature Granulocyte (auto 0.04 0-1 K/uL Nucleated Red Blood Cells 0.0 0.0-0.19 % Sodium Level 140 136-145 mmol/L Potassium Level 3.3 L 3.5-5.1 mmol/L Chloride Level 107 101-111 mmol/L Carbon Dioxide Level 26 21-32 mmol/L Blood Urea Nitrogen 10 7-18 mg/dL Creatinine 0.9 0.5-1.0 mg/dL Glomerular Filtration Rate Calc 63 >90 mL/min Random Glucose 102 70-105 mg/dL Total Calcium 8.3 L 8.5-10.1 mg/dL Total Bilirubin 0.5 0.2-1.0 mg/dL Aspartate Amino Transf (AST/SGOT) 23 10-37 U/L Alanine Aminotransferase (ALT/SGPT) 18 12-78 U/L Alkaline Phosphatase 76 50-136 U/L Total Protein 5.5 L 6.0-8.3 g/dL Albumin 2.6 L 3.5-5.0 g/dL Prothrombin Time 11.4 9.6-11.6 SEC Prothromb Time International Ratio 1.08 0.85-1.15 Activated Partial Thromboplast Time 23.8 L 26.3-35.5 SEC Magnesium Level 2.10 1.80-2.40 mg/dL Erythrocyte Sedimentation Rate 5 0-30 MM/HR Lactic Acid Level 1.5 0.8-2.5 mmol/L C-Reactive Protein, Quantitative 15.20 H 0.5-3.0 mg/L Procalcitonin < 0.05 L 0.05-0.5 ng/mL Current Medications Medications (Trade) Dose Ordered Sig/Reji Route PRN Reason Start Time Stop Time Status Last Admin Dose Admin Acetaminophen (TYLenol 325MG TAB) 650 mg Q4H PRN PO MILD PAIN (1-3) 10/26/24 03:00 10/27/24 08:50 DC Acetaminophen (TYLenol 325MG TAB) 650 mg Q6H PRN PO TEMPERATURE GREATER THAN 101.5 10/26/24 03:00 4/13/25 02:59 Acetaminophen (TYLenol 500MG TAB) 1,000 mg Q6H PRN PO MILD PAIN (1-3) 10/27/24 09:00 11/26/24 08:59 Amlodipine Besylate (NorvASC 5MG TAB) 5 mg HS PO 10/27/24 21:00 11/26/24 20:59 Carvedilol (Coreg 25MG) 25 mg BID PO 10/27/24 09:00 11/26/24 08:59 10/27/24 09:23 25 MG Famotidine (Pepcid 20mg Vial) 20 mg BID IV 10/26/24 09:00 10/27/24 08:52 DC 10/26/24 09:33 20 MG Famotidine (Pepcid 20mg Vial) 20 mg Q6H PRN IV 15 MIN BEFORE IV TORADOL ADMIN 10/27/24 10:30 11/26/24 10:29 UNV Ketorolac Tromethamine (toRADol) 15 mg Q6H PRN IV MODERATE PAIN (4-6) 10/26/24 03:00 10/31/24 02:59 10/27/24 04:35 15 MG Latanoprost (Xalatan) 1 DROP HS OU 10/27/24 21:00 11/26/24 20:59 Levofloxacin/ Dextrose (LEvaquIN 750 MG/ D5W 150 ML) 750 mg Q24H IV 10/26/24 03:00 11/05/24 02:59 10/27/24 03:29 750 MG Losartan Potassium (CozAAR 100MG TAB) 100 mg DAILY PO 10/27/24 09:00 11/26/24 08:59 10/27/24 09:23 100 MG Magnesium Sulfate 50 ml @ 0 mls/hr PROTOCOL PRN IV OTHER [SEE ORDER COMMENTS] 10/26/24 03:30 11/25/24 03:29 10/26/24 15:24 25 MLS/HR Metoprolol Tartrate (loprESSOR) 5 mg Q6H PRN IV ADMINISTER FOR SBP > 160 10/26/24 09:30 11/25/24 09:29 Ondansetron HCl (zoFRAN 4MG INJ) 4 mg Q6H PRN IV NAUSEA/VOMITING 10/26/24 03:00 11/25/24 02:59 Pantoprazole Sodium (PROTonix 40MG INJ) 40 mg DAILY IVP 10/27/24 09:00 11/26/24 08:59 10/27/24 09:22 40 MG Potassium Chloride 100 ml @ 50 mls/hr AD PRN IV POTASSIUM PROTOCOL 10/26/24 03:30 11/25/24 03:29 10/27/24 09:24 50 MLS/HR Potassium Chloride 100 ml @ 100 mls/hr AD PRN IV POTASSIUM PROTOCOL 10/26/24 15:00 11/25/24 14:59 Potassium Chloride (K-Dur/Klor-Con 20meq) 20 meq AD PRN PO POTASSIUM PROTOCOL 10/26/24 15:00 11/25/24 14:59 10/26/24 20:33 20 MEQ Potassium Chloride (KCl 10% Elixir 20meq/15ml) 20 meq AD PRN PO POTASSIUM PROTOCOL 10/26/24 15:00 11/25/24 14:59 10/27/24 00:57 20 MEQ Sodium Chloride 1,000 ml @ 100 mls/hr Q10H IV 10/26/24 03:00 11/25/24 02:59 10/27/24 09:24 100 MLS/HR Diagnostics / Radiology: [address] [address] IMAGING REPORT Signed PATIENT: DAVID CULLEN MR#: [id number] : 1940 SEX: F AGE: 84 LOCATION: 4DH ORDER [id number] STATUS: ADM IN REPORT#: [id number] SERVICE [id number] REASON: post op loop colostomy, abd pain ORDERING PHYSICIAN: JOSIE LINDO PROCEDURE: ABD PELWWO - CT ABDOMEN/PELVIS W/WO CONTRAS Exam Type: CT ABDOMEN/PELVIS W/WO CONTRAS Clinical Information: post op loop colostomy, abd pain Comparison: None Contrast: 100 cc's Isovue 370 IV, no complications or adverse reactions CT Dose Index (CTDI): 31.60 mGy Dose Length Product (DLP): 1740.80 total mGy-cm Findings: No evidence of nephro or ureterolithiasis is found. No hydronephrosis or ureteral dilatation is seen. The lung bases are clear. The stomach is unremarkable except for moderate sized hiatal hernia.. It shows no wall thickening. No gross ulceration is seen. It is not overly distended. There are no surrounding inflammatory changes. No wall lesions are identified to suggest cancer. The spleen is unremarkable. It is not enlarged. The pancreas shows normal anatomy. It is not fatty replaced. It shows no lesions. The pancreatic duct is not dilated. The gallbladder is unremarkable. It shows no cholelithiasis. The gallbladder wall is normal in thickness. There is no pericholecystic fluid. The is no acute or chronic inflammation noted. The adrenal glands are unremarkable. There is no enlargement. No lesions are noted. The liver is unremarkable. It shows no focal masses. The appendix is unremarkable. It shows no evidence of inflammation. No appendicolith is seen. The small bowel is unremarkable. There is no evidence of dilatation to suggest obstruction. No evidence of adynamic ileus is seen. There is no small bowel wall thickening to suggest enteritis. Recent left-sided colostomy seen and there is air within the abdominal wall. This is explained by recent postoperative changes but follow-up is necessary to confirm resolution and exclude underlying soft tissue infection. The urinary bladder is distended. The other pelvic structures are unremarkable. The bony and vascular structures are unremarkable for the patient's age. IMPRESSION: Recent left-sided colostomy seen and there is air within the abdominal wall. This is explained by recent postoperative changes but follow-up is necessary to confirm resolution and exclude underlying soft tissue infection. Distended urinary bladder. This study was performed using dose reduction techniques to include automated exposure control and/or adjustment of the mA and/or kV according to patient size. DICTATED BY: EDGARDO WOODS MD DATE: 10/27/24829 ELECTRONICALLY SIGNED BY: EDGARDO WOODS MD DATE: 10/27/24833 Assessment: POD 5 - S/P Loop colostomy CT scan results reviewed and discussed with operating surgeon. Patient clinically stable with watery stoma output. Ambulating Ad aníbal, SCDs in place. Voiding without difficulty No upper GI symptoms like nausea or emesis. Plan: Begin bowel regimen with Miralax 17g QD Begin advancement of diet as tolerated. Monitor stoma output GI/DVT prophylaxis. Monitor and treat pain as needed. No surgical indications at the moment. Follow hospitalist recommendations. Call with any change in clinical status, thank you for the consult. DOMINGO CALVIN Oct 27, 2024 10:34
[2024-10-27 13:08] LABS: APPEARANCE,URINE CLEAR (CLEAR); BILIRUBIN,URINE NEGATIVE (NEGATIVE); COLOR,URINE LIGHT-YELLOW (YELLOW); GLUCOSE, URINE (UA) NEGATIVE (NEGATIVE); KETONES,URINE 5 mg/dL (NEGATIVE); LEUKOCYTE ESTERASE ,URINE NEGATIVE Leu/uL (NEGATIVE); NITRATE,URINE NEGATIVE (NEGATIVE); OCCULT BLOOD,URINE NEGATIVE (NEGATIVE); PH,URINE 5.5 (5.0-8.0); PROTEIN,URINE NEGATIVE (NEGATIVE); UROBILINOGEN,URINE 0.2 mg/dL (0.2-1.0)
[2024-10-27 13:09] LABS: ADD UA MICROSCOPIC YES
[2024-10-27 13:11] LABS: BACTERIA,URINE RARE /HPF (None Seen); MUCUS,URINE RARE LPF (None Seen); RBC,URINE 0-1 /HPF (0-1); SQUAMOUS EPITHELIAL CELL,UR RARE /HPF (0-2); WBC,URINE 0-1 /HPF (0-1)
[2024-10-27] MEDS: LATANOPROST 2.5 ML DROPS OU SCH (20:14)
[2024-10-27] MEDS: amLODIPine 5 MG TAB PO SCH (20:15)
[2024-10-27] MEDS: traMADol HCL 50 MG TABLET PO PRN (20:23)
[2024-10-28] VITALS: BP 139/55; PULSE 74; RESP 17; TEMP 98.7
[2024-10-28 04:00] VITALS: BP 149/56; PULSE 70; RESP 17; TEMP 98.2
[2024-10-28 06:10] LABS: BASOPHILS # (AUTO) 0.02 K/uL (0.00-0.20); BASOPHILS % (AUTO) 0.2 % (0.0-5.0); EOSINOPHILS # (AUTO) 0.43 K/uL (0.00-0.70); EOSINOPHILS % (AUTO) 4.7 % (0.0-8.0); HEMATOCRIT 35.7 % (36-48); IMMATURE GRANULOCYTE ABSOLUTE 0.05 K/uL (0-1); LYMPHOCYTES # (AUTO) 1.3 K/uL (1.0-4.8); LYMPHOCYTES % (AUTO) 13.9 % (21.0-51.0); MEAN CORPUSCULAR HEMOGLOBIN 29.7 pg (27.0-33.0); MEAN CORPUSCULAR HGB CONC 33.1 g/dL (32.0-36.0); MEAN CORPUSCULAR VOLUME 89.9 fL (79-99); MONOCYTES # (AUTO) 0.9 K/uL (0.1-1.0); MONOCYTES % (AUTO) 10.1 % (3.0-13.0); NEUTROPHILS # (AUTO) 6.5 K/uL (1.8-7.7); NEUTROPHILS % (AUTO) 70.6 % (40.0-77.0); PLATELET COUNT (AUTO) 212 K/uL (130-400); RED BLOOD CELL COUNT(AUTO) 3.97 MIL/uL (4.00-5.50); RED CELL DISTRIBUTION WIDTH 14.9 % (11.0-15.5); WHITE BLOOD COUNT (AUTO) 9.2 K/uL (4.8-10.8)
[2024-10-28 06:20] LABS: CREATININE 0.8 mg/dL (0.5-1.0); POTASSIUM 3.8 mmol/L (3.5-5.1)
[2024-10-28 08:00] VITALS: BP 155/68; PULSE 82; RESP 18; TEMP 97.9; O2SAT 98
--- NOTE | 2024-10-28 09:35 | DS ---
Discharge Summary Hospital Course Summary: 84-year-old female with past medical history of essential hypertension, hyperlipidemia, colorectal cancer with recent robotic lysis of adhesions and colostomy creation performed on 10/22/[address] Dipak Estrada transferred from [facility] ER in [place] with chief complaint of severe abdominal pain. Patient adm itted with diagnosis of intractable abdominal pain secondary to suspected soft tissue infection and recent left-sided colostomy placement. Dr. Dipak Estrada consulted. 10/27/2024 this morning patient was found awake alert oriented x3. she is complaining of pain to colostomy area. Dr. Patel also at bedside during assessment. There is no abdominal distention, colostomy bag in place. Primary nurse reports output this morning was [address] results with surgery team. Reports soft tissue infection is unlikely. Incidental finding of distended urinary bladder. Bladder scan showed2 L, patient reports history of this and reports could be positional. Patient had 500 mL of output after changing positions. Repeat bladder scan showing approximately 1500 mL of residual. Recommending Martinez catheter. Patient reports we will continue to try review hours and if still not successful okay for Martinez catheter insertion. Surgery team recommended patient continue being monitored, continue IV antibiotics. If remained stable may be discharged tomorrow from surgery standpoint. Discussed these recommendations with primary nurse. 10/28/2024 today at bedside evaluation patient is alert and oriented x3. no complaints of chest pain, shortness of breath, abdominal pain, nausea, fevers. Tolerating regular diet. Latest vitals and labs were stable. Blood cultures are negative so far. Discontinue IV antibiotics. Abdomen is nondistended. Colostomy in place. Monitoring output. Patient continues to work with physical therapy. Physical therapy recommends patient use front wheel walker at home. Patient reports already has walker. From medical standpoint patient is stable and cleared for discharge. Advised to follow up with PCP in 2-3 days for continued evaluation. Follow up with surgeon as recommended for continued evaluation. Continue home medications as usual. Staff Assistant(s): General surgeon Dr. Dipak Estrada Assessment/Plan: ASSESSMENT: Intractable abdominal pain to area surrounding loop colostomy, POA improved Suspected soft tissue infection, POA Urinary retention, POA Postoperative complication POA Postoperative fever POA Rectal cancer POA Recent loop colostomy placement POA Hypertension POA PLAN: Continue admission in the medical telemetry unit Continue regular diet Stop IV fluids Transitioning off Levaquin 750 mg IV daily Reviewed urinalysis Blood cultures negative Monitoring replace electrolytes Follow surgery's recommendations on colostomy care Monitor output Bladder scan Insert Martinez catheterization if repeat bladder scan showing retention Patient having good urine output Home meds reviewed and reconciled Monitor a.m. labs PRN Treatment - Add when necessary meds for nausea, vomiting, pain, constipation, insomnia. DVT/GI prophylaxis- Continue SCDs and Protonix at current doses. Full CODE STATUS This document was generated in part using voice recognition software, occasional wrong word or sound alike substitutions may have occurred due to the inherent limitations of voice recognition software. Read the chart carefully and recognize using context, where the substitutions have occurred. Although every effort was made to edit the content, zoology technical officer and typing errors may occur Discharge Instructions: Okay to discharge home. Follow up with PCP in 2-3 days. Follow up with general surgeon as recommended in 2-3 weeks for continued evaluation. Continue to follow diet recommendations. Continue home medications. This case was discussed with Dr. Patel and above plan was formulated Home Medications: Reported Medications Latanoprost (Latanoprost) 0.005 % Drops, 1 DROP OU HS, ML 0 Refills 10/26/24 Carvedilol (Carvedilol) 25 Mg Tablet, 1 TAB PO BID for 30 Days, #60 TAB 0 Refills 10/26/24 Omeprazole (Omeprazole) 20 Mg Capsule.dr, 1 CAP PO ACBKFST for 30 Days, #30 CAP 0 Refills 10/26/24 Amlodipine Besylate (Amlodipine Besylate) 5 Mg Tablet, 1 TAB PO HS for 30 Days, #30 TAB 0 Refills 10/26/24 Losartan Potassium (Losartan Potassium) 100 Mg Tablet, 1 TAB PO DAILY for 30 Days, #30 TAB 0 Refills 10/26/24 Aspirin (ASPIRIN 81MG CHEW TAB) 81 Mg Tab.chew, 1 TAB PO DAILY for 30 Days, #30 TAB 0 Refills 10/26/24 Time spent arranging discharge: 31-60 minutes CHRISTINE RYDERP Oct 28, 2024 09:35
[2024-10-28] MEDS: polyETHYLene GLYCol 3350 17 GM POWD.PACK PO SCH (10:12)
--- NOTE | 2024-10-28 11:10 | NUR ---
PT recommending FWW with DC home.
[2024-10-28 12:00] VITALS: BP 150/63; PULSE 77; RESP 18; TEMP 97.8
== END 2024-10-28 16:12 | disposition home health service (06) | DRG 699 ==
LOC: 4DH 01:56
PROVIDERS: ADMIT Internal Medicine; ATTEND Internal Medicine
DX: N32.89 Other specified disorders of bladder (principal); C20 Malignant neoplasm of rectum; K94.09 Other complications of colostomy; R50.82 Postprocedural fever; I10 Essential (primary) hypertension; K44.9 Diaphragmatic hernia without obstruction or gangrene; E78.5 Hyperlipidemia, unspecified; R33.9 Retention of urine, unspecified; Z85.048 Personal history of other malignant neoplasm of rectum, rectosigmoid junction, and anus; Z79.899 Other long term (current) drug therapy
CPT/HCPCS: 36415; 74178; 80048; 80053; 81001; 83605; 83735; 84132; 84145; 85025; 85610; 85651; 85730; 86140; 87040; 87086; G0378; J1885; J1956; J2270; J2470; J2765; J3475; J3480; J3490; Q9963; Q9967